=== PATIENT | female | born 1975 | race Hispanic/Latino ===

== ENCOUNTER 2017-01-10 05:59 | Day surgery (SDC) | payer OTHER ==
[2017-01-10] MEDS ORDERED: WATER FOR IRRIG STERILE IR ONE (07:15)
[2017-01-10] MEDS ORDERED: INFANTS' GAS RELIEF PO ONE (07:18)
[2017-01-10] MEDS ORDERED: DIPRIVAN 10 MG/ML IV ONE ×2 (07:48)
--- NOTE | 2017-01-10 07:48 | Anesthesia Day of Surgery ---
Anesthesia Day of Surgery - Day of Surgery Patient Examined: Yes Patient H&P Reviewed: Yes Patient is NPO: Yes
--- NOTE | 2017-01-10 07:48 | Anesthesia Consultation ---
Anesthesia Consult and Med Hx Date of service: 01/10/17 - Airway Anesthetic Teeth Evaluation: Good ROM Head & Neck: Adequate Mental/Hyoid Distance: Adequate Mallampati Class: Class II Intubation Access Assessment: Probably Good - Pulmonary Exam CTA: Yes - Cardiac Exam Cardiac Exam: RRR - Pre-Operative Health Status ASA Pre-Surgery Classification: ASA3 Proposed Anesthetic Plan: MAC - Pulmonary Hx Asthma: Yes Hx Pneumonia: Yes (getting over bronchitis CTA) - Central Nervous System Hx Back Pain: Yes (back injury) - Hematic Hx Anemia: Yes - Additional Comments Anesthesia Medical History Comments: HTN prebypass surgery, resovled since. N/V when eat only, reflux prebypass also resloved.
[2017-01-10] MEDS ORDERED: NACL 0.9% 1000 ML 1,000 ML IV SCH (08:00)
--- NOTE | 2017-01-10 08:24 | Operative Report ---
Operative Report Operative Report: DATE: 01/10/2017 OPERATIVE REPORT - EGD PREOP DIAGNOSIS: dysphagia, nausea/vomiting POSTOP DIAGNOSIS: 1. failure of gastrojejunostomy 2. enterogastric reflux SURGERY: Upper endoscopy. SURGEON: Gregory Ingram M.D. TROLLEY WIRE INSTALLER: Dell Oliver M.D. TYPE OF ANESTHESIA: MAC. ESTIMATED BLOOD LOSS: None. COMPLICATIONS: None. SPECIMENS REMOVED: None. FINDINGS: 1. mildly distended lower esophagus 2. gastric pouch - 40ml 3. gastrojejunal anastomosis is 30mm INDICATIONS:INDICATION FOR PROCEDURE: Patient is a 41-year-old F s/p gastric bypass. The patient is here today for evaluation for disphagia/nausea/vomiting since Jul 2016. PROCEDURE DETAILS: After consent was reviewed, patient was taken back to the operating room where patient was placed in the left lateral decubitus position and a bite block was placed in the mouth. After a time-out was called, MAC anesthesia was initiated. I then passed the endoscope into the patients oropharynx, into the esophagus, visualized the entire esophagus, which was all grossly normal but with some mucus pooling in the lower end. I then visualized the gastric pouch which was small and about 40ml in size. The gastrojejunal anastomosis was dilated at about 30mm. Some enterogastric reflux was seen. The proximal portion of the kenneth limb was normal. I then desufflated the gastric pouch and removed the endoscope. Patient tolerated procedure well and was transferred to recovery room in good and stable condition
--- NOTE | 2017-01-10 08:26 | Discharge Summary ---
Providers - Providers Date of discharge: 01/10/17 Attending physician: ZAC SKY Hospitalization Reason for admission: outpateint EGD Condition: Stable Procedures: EGD Disposition: DISCHARGED TO HOME OR SELFCARE Core Measure Documentation - Palliative Care Palliative Care/ Comfort Measures: Not Applicable - Core Measures Any of the following diagnoses?: none Exam - Physical Exam Narrative exam: unchanged from preop - Constitutional Vitals: Temp Pulse Resp BP Pulse Ox 97.7 F 86 14 107/67 100 01/10/17 08:12 01/10/17 08:12 01/10/17 08:12 01/10/17 08:12 01/10/17 08:12 Plan Activity: advance as tolerated Diet: advance as tolerated
[2017-01-10 08:41] VITALS: BP 101/68
--- NOTE | 2017-01-10 15:07 | Post Anesthesia Evaluation ---
- Post Anesthesia Evaluation Patient Participated: Yes Airway Patent: Yes Stable Respiratory Function: Yes Nausea/Vomiting: No Temp > 96.8F: Yes Pain Manageable: Yes Adequeate Hydration: Yes Anesthesia Complications: No Block Receding Appropriately: Not Applicable Patient on Ventilator: No
== END 2017-01-10 06:00 | disposition home or self-care (01) ==
LOC: GIO 05:59
PROVIDERS: ATTEND Specialist
DX: K91.89 Other postprocedural complications and disorders of digestive system (principal); K21.9 Gastro-esophageal reflux disease without esophagitis; F41.9 Anxiety disorder, unspecified; D50.9 Iron deficiency anemia, unspecified; J45.909 Unspecified asthma, uncomplicated; D64.9 Anemia, unspecified; E55.9 Vitamin D deficiency, unspecified; E66.09 Other obesity due to excess calories; Z68.33 Body mass index [BMI] 33.0-33.9, adult; Z98.84 Bariatric surgery status; Z87.01 Personal history of pneumonia (recurrent)
CPT/HCPCS: 43235; J2704; J7030

== ENCOUNTER 2017-03-28 10:34 | Day surgery (SDC) | payer OTHER ==
[~2017-03-28 10:34] MED LIST: DIPRIVAN 10 MG/ML IV ONE
[2017-03-28] MEDS ORDERED: TRANSDERM-SCOP TD SCH (11:00)
[2017-03-28] MEDS ORDERED: LOVENOX SUB-Q NR (11:00)
[2017-03-28] MEDS ORDERED: ANCEF/STERILE WATER 2 GM/20 ML 2 GM/20 ML SYRINGE IV NR (11:00)
[2017-03-28] MEDS ORDERED: FLAGYL 500 MG/100 ML 500 MG/100 ML BAG IV NR (12:00)
[2017-03-28] MEDS ORDERED: XYLOCAINE 1% 20 mL ONE (12:44)
[2017-03-28] MEDS ORDERED: SUBLIMAZE ONE ×2 (12:45→13:04)
[2017-03-28] MEDS ORDERED: MARCAINE-EPI/PF 0.5%-1:200,000 INFILTRATI ONE ×2 (12:46→13:55)
--- NOTE | 2017-03-28 12:57 | Anesthesia Consultation ---
Anesthesia Consult and Med Hx Date of service: 03/28/17 - Airway Anesthetic Teeth Evaluation: Good ROM Head & Neck: Adequate Mental/Hyoid Distance: Adequate Mallampati Class: Class I Intubation Access Assessment: Good - Pulmonary Exam CTA: Yes - Cardiac Exam Cardiac Exam: RRR - Pre-Operative Health Status ASA Pre-Surgery Classification: ASA2 Proposed Anesthetic Plan: General - Pulmonary Hx Smoking: No Hx Asthma: Yes (USES INHALERS PRN) Hx Pneumonia: Yes (JANUARY 2017) - Cardiovascular System Hx Hypertension: ("RESOLVED") - Central Nervous System Hx Back Pain: Yes (back injury) Hx Psychiatric Problems: Yes - Hematic Hx Anemia: Yes - Other Systems Hx Cancer: No - Additional Comments Anesthesia Medical History Comments: No previous anesthesia complications. ALSO allergic to DECADRON !!
[2017-03-28] MEDS ORDERED: DECADRON ONE (13:00)
--- NOTE | 2017-03-28 13:00 | Anesthesia Day of Surgery ---
Anesthesia Day of Surgery - Day of Surgery Patient Examined: Yes Patient H&P Reviewed: Yes Patient is NPO: Yes
[2017-03-28] MEDS ORDERED: VERSED IV PRN (13:02)
[2017-03-28] MEDS ORDERED: ZOFRAN ONE (13:04)
[2017-03-28] MEDS ORDERED: REGLAN ONE (13:04)
[2017-03-28] MEDS ORDERED: ZEMURON IV ONE (13:04)
[2017-03-28] MEDS ORDERED: QUELICIN ONE (13:04)
[2017-03-28] MEDS ORDERED: XYLOCAINE MPF 2% ONE (13:04)
[2017-03-28] MEDS ORDERED: DIPRIVAN 10 MG/ML IV ONE (13:04)
[2017-03-28] MEDS ORDERED: NACL 0.9% 1000 ML 1,000 ML ONE ×2 (13:46→15:07)
[2017-03-28] MEDS ORDERED: ePHEDrine SULFATE ONE (13:46)
[2017-03-28] MEDS ORDERED: XYLOCAINE 1% 20 mL INFILTRATI ONE (13:55)
[2017-03-28] MEDS ORDERED: NACL 0.9% 1000 ML 1,000 ML IV SCH (14:00)
[2017-03-28] MEDS ORDERED: NACL 0.9% IR ONE (14:13)
[2017-03-28] MEDS ORDERED: ROBINUL ONE ×2 (14:55→15:00)
[2017-03-28] MEDS ORDERED: BLOXIVERZ ONE ×2 (15:00)
[2017-03-28] MEDS ORDERED: NEO SYNEPHRINE ONE (15:01)
[2017-03-28] MEDS ORDERED: NACL 0.9% 100 ML ONE (15:01)
[2017-03-28] MEDS ORDERED: TISSEEL VHSD FROZEN 4 ML SYR TP ONE (15:10)
[2017-03-28] MEDS ORDERED: BREVIBLOC IV ONE (15:24)
[2017-03-28] MEDS ORDERED: PROAIR IH ONE (15:34)
--- NOTE | 2017-03-28 15:53 | Post Anesthesia Evaluation ---
- Post Anesthesia Evaluation Patient Participated: Yes Airway Patent: Yes Stable Respiratory Function: Yes Nausea/Vomiting: No Temp > 96.8F: Yes Pain Manageable: Yes Adequeate Hydration: Yes Anesthesia Complications: No
[2017-03-28] MEDS ORDERED: MYLICON PO PRN (16:56)
[2017-03-28] MEDS ORDERED: ZOFRAN IV PRN (16:57)
[2017-03-28] MEDS ORDERED: REGLAN IV PRN (16:57)
[2017-03-28] MEDS: DILAUDID IV PRN ×2 (17:02→18:01)
[2017-03-28 20:19] VITALS: BP 114/69
--- NOTE | 2017-03-28 20:43 | Discharge Summary ---
Providers - Providers Date of discharge: 03/28/17 Attending physician: ZAC SKY Hospitalization Reason for admission: outpatient surgery Condition: Stable Procedures: Diagnostic Laparoscopy + Petersens space closure + Recurrent Hiatal Hernia repair + Pouchoplasty Disposition: - TO HOME OR SELFCARE Core Measure Documentation - Palliative Care Palliative Care/ Comfort Measures: Not Applicable - Core Measures Any of the following diagnoses?: none Exam - Physical Exam Narrative exam: VSS, AF NAD Lungs CTA BL Heart RRR Abd soft, non-distended, mild wound TTP and covered with dressings c/d/i Neuro AAOx3 - Constitutional Vitals: Temp Pulse Resp BP Pulse Ox 97.0 F L 69 15 114/69 97 03/28/17 18:40 03/28/17 18:40 03/28/17 18:40 03/28/17 18:40 03/28/17 18:40 Plan Activity: advance as tolerated Diet: low carbohydrate, advance as tolerated Wound: keep clean and dry Special Instructions: no heavy lifting Follow up with: DR ODALIS [Other] - 7 Days Forms: Outpatient Surgery DC Inst.
--- NOTE | 2017-03-29 05:30 | Operative Report ---
ATTENDING SURGEON: Gregory Ingram MD ELL TEACHER: Dell Oliver M.D. and Dr. Townsend. PREOPERATIVE DIAGNOSIS: Epigastric pain. POSTOPERATIVE DIAGNOSES: Intraabdominal adhesions, failure of gastrojejunostomy, patency of Baptiste's space. OPERATION PERFORMED: Diagnostic laparoscopy, closure of Baptiste's space, gastrojejunostomy plasty and esophagogastroduodenoscopy intraoperative. INDICATION FOR PROCEDURE: The patient is a 42-year-old female with history of Nathalie-en-Y gastric bypass who has been experiencing chronic epigastric pain. After discussing risks and benefits of the operative procedure, she decided to consent for it. DESCRIPTION OF PROCEDURE: The patient was brought to the operating room and placed on the operating table in supine position. General endotracheal tube anesthesia was given by the anesthesia team. The patient was prepped and draped under standard fashion. Timeout was called. The patient and procedure were correct, so we proceeded to access the abdominal cavity with a Veress needle in Bennett's point insufflated up to 15 mmHg. Then, we proceeded to use the Optiview technique to insert a 5 mm trocar on the right upper quadrant subcostal region. Then, a quick survey of abdominal cavity was seen. An evenly dilated small bowel was encountered also with a redundant sigmoid colon. So we proceeded to place the working ports. We placed two left upper quadrant 5 mm trocars and one 12 mm umbilical port, all under direct visualization. We proceeded to ran the bowel starting from the pouch, gastrojejunostomy down to the jejunojejunostomy assessing the entire Nathalie limb from the jejunojejunostomy to biliopancreatic limb reaching ligament of Treitz. After doing this we ran the bowel through the common channel all the way down to the ileocecal valve and it was noted that it was evenly dilated. Then, we assessed Baptiste's space and it appeared to be that bowel could have been herniated through it since there was a perfect patency of that space. It was reapproximated with Surgidac running suture. After doing these, we proceeded to do lysis of adhesions of the pouch and I excluded stomach as well as dissected the liver attachments to the pouch and the crura. An intraoperative endoscopy showed possibility of a small hiatal hernia. Therefore, the crura was dissected out and in fact there was part of the pouch that was herniated into the thorax. This was dissected circumferentially and reduced into the abdomen with approximately 2 to 3 cm of the esophagus that was intraabdominal. Then, we proceeded to reapproximate the crura with using Surgidac two interrupted figure of 8 creating an anterior cruroplasty. Then, we noticed that the pouch was redundant and most of the pouch was herniated and as well in the endoscopy was visualized that there was a stretched gastrojejunostomy, possible signs of intragastric reflux, so we decided to narrow the gastrojejunostomy and the pouch using a pouchoplasty with Surgidac suture imbricating the redundant part of the pouch. Once this was finalized, we proceeded to run the bowel again and controlled hemostasis and irrigated and suctioned the area. Then, we proceeded to remove all the trocars under direct visualization. Reviewed pneumoperitoneum and the umbilical port was closed in 2 layers. We used #1 PDS for the fascia and then 4-0 Monocryl for the skin. The other incisions were closed in 1 layer, all 5 mm trocars with a single layer subcuticular 4-0 Monocryl. Dry dressings were applied. The patient tolerated very well the procedure and was sent to recovery room. DISPOSITION: Home. The attending was present for the entire procedure. Instrument and lap count was correct x 2. Additional procedure was the description for the esophagogastroduodenoscopy intraoperatively. While we were performing the laparoscopic part of procedure, the endoscope was inserted into the mouth of the patient down to the esophagus, the gastric pouch and the Nathalie limb. The gastrojejunostomy appears stretched up to 3 cm in diameter and some retrograde peristalsis from the intestine into pouch with possible intragastric reflux. We also noticed some of the pouch was herniating into the chest forming a recurrent hiatal hernia. At this point, the Nathalie limb and the pouch deflated and the endoscope was kept in the distal esophagus that aided throughout the entire procedure and the pouchoplasty as well. JOB# [id number] RICHARD/PIERCE GONSALEZ
== END 2017-03-28 19:00 | disposition home or self-care (01) ==
LOC: OR 10:34
PROVIDERS: ATTEND Specialist
DX: K91.89 Other postprocedural complications and disorders of digestive system (principal); K63.89 Other specified diseases of intestine; K66.0 Peritoneal adhesions (postprocedural) (postinfection); J45.909 Unspecified asthma, uncomplicated; F41.9 Anxiety disorder, unspecified; F32.9 Major depressive disorder, single episode, unspecified; D50.9 Iron deficiency anemia, unspecified; E55.9 Vitamin D deficiency, unspecified; Z88.8 Allergy status to other drugs, medicaments and biological substances; Z91.09 Other allergy status, other than to drugs and biological substances; Z87.01 Personal history of pneumonia (recurrent); Z79.899 Other long term (current) drug therapy; Y83.2 Surgical operation with anastomosis, bypass or graft as the cause of abnormal reaction of the patient, or of later complication, without mention of misadventure at the time of the procedure
CPT/HCPCS: 43281; 44238; C9250; J0330; J0690; J1100; J1170; J1650; J2250; J2370; J2405; J2704; J2710; J2765; J3010; J7030